=== PATIENT | female | born 1995 | race African-American/Black ===

== ENCOUNTER 2019-05-03 10:58 | Emergency (ER) | payer BC, OTHER ==
[~2019-05-03] VITALS: Ht 170.2 cm; Wt 68.0 kg
--- NOTE | 2019-05-03 11:05 | NUR ---
PT IS A/OX4, PRESENTS TO THE ER C/O CHEST DISCOMFORT AND PALPITATIONS THAT BEGAN AT 0930 THIS AM. PT REPORTS CHEST DISCOMFORT IS PROVOKED BY DEEP INHALATIONS, NO RADIATION. VSS. PT DENIES SOB, N/V/D, DIZZINESS, HEADACHE. ER MD AT BEDSIDE FOR MSE.
[2019-05-03 11:29] LABS: CREATININE 1.1 mg/dL (0.6-1.3)
[2019-05-03 11:33] LABS: BASOPHILS % (AUTO) 1.2 % (0.0-2.0); EOSINOPHILS # (AUTO) 0.1 K/uL (0.0-0.7); EOSINOPHILS % (AUTO) 3.4 % (0.0-7.0); HEMATOCRIT 39.9 % (31.2-41.9); HEMOGLOBIN 13.6 g/dL (10.9-14.3); LYMPHOCYTES # (AUTO) 1.9 K/uL (20.0-40.0); LYMPHOCYTES % (AUTO) 52.1 % (20.5-51.5); MEAN CORPUSCULAR HGB CONC 34 g/dL (32.3-35.6); MEAN CORPUSCULAR VOLUME 85.1 fL (75.5-95.3); MONOCYTES # (AUTO) 0.2 K/uL (2.0-10.0); MONOCYTES % (AUTO) 6.5 % (0.0-11.0); NEUTROPHILS # (AUTO) 1.3 K/uL (1.8-8.9); NEUTROPHILS % (AUTO) 36.8 % (38.5-71.5); PLATELET COUNT (AUTO) 227 K/uL (179-408); RED BLOOD CELL COUNT(AUTO) 4.69 MIL/uL (3.63-4.92); WHITE BLOOD COUNT (AUTO) 3.6 K/uL (3.8-11.8)
[2019-05-03 11:35] LABS: BILIRUBIN,DIRECT 0.2 mg/dL (0.0-0.2); BILIRUBIN,TOTAL 1.3 mg/dL (0.2-1.0); TOTAL PROTEIN, SERUM 7.7 g/dL (6.4-8.2)
[2019-05-03] MEDS ORDERED: CLONIDINE HCL 0.2 MG TABLET PO ONE (11:45)
--- NOTE | 2019-05-03 11:48 | NUR ---
CHARISMA ORDAZ AT BEDSIDE FOR PT UPDATE.
[2019-05-03 11:56] VITALS: BP 121/66
--- NOTE | 2019-05-03 11:56 | NUR ---
Patient discharged to home in stable conditon. Written and verbal after care instructions given. Patient verbalizes understanding of instructions. ALL BELONGINGS W/ PT. PT SELF-AMBULATED W/O DIFFICULTY.
== END 2019-05-03 11:57 | disposition home or self-care (01) ==
LOC: ER 10:58
DX: R07.2 Precordial pain (principal)
CPT/HCPCS: 36415; 70030-TC; 71045; 83690; 85025; 93005; A4663